=== PATIENT | female | born 1995 | race Caucasian/White ===

== ENCOUNTER 2019-06-04 12:24 | Emergency (ER) | payer BC, OTHER ==
[2019-06-04 12:33] VITALS: BP 138/77; PULSE 101
[2019-06-04] MEDS ORDERED: Amoxicillin 500 MG Cap PO ONE (13:05)
--- NOTE | 2019-06-04 13:21 | EDM.PDOC ---
ED HPI GENERAL MEDICAL PROBLEM - General Chief Complaint: ENT Problem Stated Complaint: sore throat Time Seen by Provider: 06/04/19 12:57 Source of Information: Reports: Patient History Limitations: Reports: No Limitations - History of Present Illness INITIAL COMMENTS - FREE TEXT/NARRATIVE: Patient is a 23-year-old female that presents to the emergency department via private vehicle with a complaint of sore throat 1 day. Patient states that she developed sore throat yesterday, and woke up today she noticed white pockets on her tonsils. Patient denies chest pain, shortness of breath, stiff neck, out of country travel or sick contacts. Onset: Gradual Onset Date: 06/03/19 Duration: Day(s): Location: Reports: Other (Throat) Quality: Reports: Burning Severity: Moderate Improves with: Reports: None Worsens with: Reports: Eating Associated Symptoms: Reports: Fever/Chills. Denies: Chest Pain, Cough, Nausea/ Vomiting, Shortness of Breath Other Treatments INTERN BRAND: cold and flu hot tea this am Throat Pain Score (Numeric/FACES): 7 - Related Data Allergies Allergy/AdvReac Type Severity Reaction Status Date / Time Latex, Natural Rubber Allergy Rash Verified 06/04/19 12:33 Home Meds: Home Meds Biotin/Keratin [Biotin Plus Keratin Tablet] 1 each PO DAILY 06/04/19 [History] Non-Formulary Medication [NF Drug] 0 each PO DAILY 06/04/19 [History] Past Medical History - Past Health History Medical/Surgical History: Denies Medical/Surgical History HEENT History: Reports: Hard of Hearing Cardiovascular History: Reports: None Respiratory History: Reports: None Gastrointestinal History: Reports: None Genitourinary History: Reports: None MANAGER OF ENGINEERING History: Reports: Other (See Below) Other MANAGER OF ENGINEERING History: Patient states 'my eggs don't mature. They before they do'. Musculoskeletal History: Reports: Other (See Below) Other Musculoskeletal History: 'I've been in & out of the chiropractor the last couple months with ribs being out of place'. Neurological History: Reports: None Psychiatric History: Reports: None Endocrine/Metabolic History: Reports: None Hematologic History: Reports: None Immunologic History: Reports: None Oncologic (Cancer) History: Reports: None Dermatologic History: Reports: None - Infectious Disease History Infectious Disease History: Reports: Chicken Pox - Past Surgical History Head Surgeries/Procedures: Reports: None Respiratory Surgical History: Reports: None Female Surgical History: Reports: None Neurological Surgical History: Reports: None Musculoskeletal Surgical History: Reports: None Oncologic Surgical History: Reports: None Dermatological Surgical History: Reports: None Social & Family History - Family History Family Medical History: Noncontributory - Tobacco Use Smoking Status *Q: Current Some Day Smoker Years of Tobacco use: 5 Packs/Tins Daily: 1 - Caffeine Use Caffeine Use: Reports: Soda Caffeine Use Comment: Very little caffeine per patient - Recreational Drug Use Recreational Drug Use: No ED ROS ENT - Review of Systems Review Of Systems: Comprehensive ROS is negative, except as noted in HPI. Constitutional: Reports: Fever HEENT: Reports: Throat Pain Respiratory: Reports: No Symptoms Cardiovascular: Reports: No Symptoms Endocrine: Reports: No Symptoms GI/Abdominal: Reports: No Symptoms : Reports: No Symptoms Musculoskeletal: Reports: No Symptoms Skin: Reports: No Symptoms Neurological: Reports: No Symptoms Psychiatric: Reports: No Symptoms Hematologic/Lymphatic: Reports: No Symptoms Immunologic: Reports: No Symptoms ED EXAM, ENT - Physical Exam Exam: See Below Exam Limited By: No Limitations General Appearance: Alert, WD/WN, No Apparent Distress Eye Exam: Bilateral Eye: Normal Inspection Ears: Normal External Exam, Normal Canal, Normal TMs Nose: Normal Inspection, Normal Mucousa, No Blood Mouth/Throat: Pharyngeal Erythema, Throat Pain, Tonsillar Erythema, Tonsillar Exudates, Tonsillar Swelling. No: Drooling, Hoarse Voice, Lip Swelling, Muffled Voice, Peritonsillar Mass, Throat Swelling, Tongue Swelling, Trismus, Uvular Deviation, Uvular Edema Head: Atraumatic, Normocephalic Neck: Lymphadenopathy (L), Lymphadenopathy (R) Respiratory/Chest: No Respiratory Distress, Lungs Clear, Normal Breath Sounds, No Accessory Muscle Use, Chest Non-Tender Cardiovascular: Regular Rate, Rhythm, No Murmur GI/Abdominal: Normal Bowel Sounds, Soft, Non-Tender Neurological: Alert, Oriented, Normal Cognition Psychiatric: Normal Affect, Normal Mood Skin: Warm, Dry, Intact, Normal Color, No Rash Lymphatic: Adenopathy (Bilateral Submandibular) Course - Vital Signs Last Recorded V/S: Last Vital Signs Temp 98.0 F 06/04/19 12:26 Pulse 101 H 06/04/19 12:26 Resp 18 06/04/19 12:26 BP 138/77 06/04/19 12:26 Pulse Ox 99 06/04/19 12:26 - Orders/Labs/Meds Meds: Medications Discontinued Medications Generic Name Dose Route Start Last Admin Trade Name Katherine PRN Reason Stop Dose Admin Amoxicillin 2,500 mg 06/04/19 13:05 Amoxil PO 06/04/19 13:06 ONETIME ONE - Re-Assessments/Exams Free Text/Narrative Re-Assessment/Exam: 06/04/19 13:21 Patient afebrile, vital signs stable, initiated amoxicillin 500 mg 3 times a day for today and tomorrow and a prescription she will get at the pharmacy on Thursday. Advised salt water gargles. Patient will follow-up with PCP in 2-3 days Departure - Departure Time of Disposition: 13:21 Disposition: Home, Self-Care 01 Condition: Good Clinical Impression: Tonsillitis - Discharge Information Instructions: Tonsillitis, [id number] Referrals: Lucy Vale MD [Primary Care Provider] - Additional Instructions: Follow-up with Dr. Hunter in 2-3 days. Return to the emergency department sooner symptoms continue or worsen. Take medication as directed. Salt water gargles for relief. Keep proper hygiene to not infect others. Sepsis Event Note - Evaluation Sepsis Screening Result: No Definite Risk - Focused Exam Vital Signs: Vital Signs Temp Pulse Resp BP Pulse Ox 06/04/19 12:26 98.0 F 101 H 18 138/77 99 Date Exam was Performed: 06/04/19 Time Exam was Performed: 13:16 - Assessment/Plan Assessment:: Tonsillitis Plan: Follow-up with PCP in 2-3 days
== END 2019-06-04 13:30 | disposition home or self-care (01) ==
LOC: KA.ED 12:24
DX: J03.90 Acute tonsillitis, unspecified (principal); F17.210 Nicotine dependence, cigarettes, uncomplicated; Z91.040 Latex allergy status; Z79.899 Other long term (current) drug therapy
CPT/HCPCS: 99282; A9270-GY